=== PATIENT | female | born 1970 | race Caucasian/White ===

== ENCOUNTER 2021-07-20 16:55 | Outpatient (CLI) | payer BC | END 2021-07-20 16:56 | disposition home or self-care (01) | LOC: SCSRAD 16:55 | PROVIDERS: ATTEND Internal Medicine Rheumatology | DX: M54.2 Cervicalgia (principal); M54.41 Lumbago with sciatica, right side; M47.816 Spondylosis without myelopathy or radiculopathy, lumbar region; M47.812 Spondylosis without myelopathy or radiculopathy, cervical region | CPT/HCPCS: 72052; 72120 ==